=== PATIENT | male | born 1965 | race Hispanic/Latino ===

== ENCOUNTER 2017-07-18 21:06 | Emergency (ER) | payer SELFPAY ==
[2017-07-18 21:16] VITALS: BP 141/79; PULSE 82; RESP 17; TEMP 98.8; O2SAT 99
[2017-07-18] MEDS ORDERED: Lidocaine 1% Inj (20ml) ONE (21:18)
[2017-07-18] MEDS ORDERED: Lidocaine 1% Inj (20ml) IJ ONE (21:21)
--- NOTE | 2017-07-18 21:32 | ED PDOC ---
Upper Extremity Pain/Injury Time Seen by Provider: 07/18/17 21:14 Chief Complaint (Nursing): Upper Extremity Problem/Injury Chief Complaint (Provider): left thumb injury History Per: Patient History/Exam Limitations: no limitations Onset/Duration Of Symptoms: Mins Current Symptoms Are (Timing): Still Present Quality: "Pain" Additional History Per: Patient Additional Complaint(s): The patient is a52yo male, presents to the ED for evaluation s/p sustaining a laceration on his left thumb. Patient reports he accidentally cut himself on a knife at work. He denies any numbness, tingling or weakness. Patient offers no additional medical complaints. Past Medical History Reviewed: Historical Data, Nursing Documentation, Vital Signs Vital Signs: Last Vital Signs Temp 98.8 F 07/18/17 21:11 Pulse 82 07/18/17 21:11 Resp 17 07/18/17 21:11 BP 141/79 07/18/17 21:11 Pulse Ox 99 07/18/17 21:11 - Medical History PMH: No Chronic Diseases - Surgical History Surgical History: No Surg Hx - Family History Family History: States: No Known Family Hx - Social History Current smoker - smoking cessation education provided: No Alcohol: None Drugs: Denies - Home Medications Home Medications: Ambulatory Orders Medication Instructions Recorded Cephalexin [cephalexin] 500 mg PO Q6 #28 cap 07/18/17 - Allergies Allergies/Adverse Reactions: Allergies Allergy/AdvReac Type Severity Reaction Status Date / Time No Known Allergies Allergy Verified 07/18/17 21:16 Review of Systems Musculoskeletal: Positive for: Hand Pain (left thumb laceration) Neurological: Negative for: Weakness, Numbness Physical Exam - Reviewed Nursing Documentation Reviewed: Yes Vital Signs Reviewed: Yes - Physical Exam Appears: Positive for: Well, Non-toxic, No Acute Distress Skin: Positive for: Normal Color, Warm. Negative for: Pallor, Rash Respiratory: Negative for: Accessory Muscle Use, Respiratory Distress Pulses-Radial (L): 2+ Pulses-Radial (R): 2+ Extremity: Positive for: Normal ROM, Capillary Refill (< 2 seconds of L thumb), Other (2 cm v shaped laceration to lateral aspect of left thumb with some partial nail involvement. non-pulsatile bleeding noted.). Negative for: Deformity, Swelling Neurologic/Psych: Positive for: Alert, Oriented. Negative for: Motor/Sensory Deficits - ECG O2 Sat by Pulse Oximetry: 99 (RA) Pulse Ox Interpretation: Normal Medical Decision Making Medical Decision Making: Time: 2119 Impression: 2cm laceration to lt thumb Plan: -- TDAP Booster -- Lidocaine 1% 3ML -- See procedure note for laceration repair Reassess Scribe Attestation: Documented by Heather Hough acting as a scribe for CHRISTIAN Reid Provider Attestation: All medical record entries made by the Scribe were at my direction and personally dictated by me. I have reviewed the chart and agree that the record accurately reflects my personal performance of the history, physical exam, medical decision making, and the department course for this patient. I have also personally directed, reviewed, and agree with the discharge instructions and disposition. Procedures - Time-Out Type of Procedure: Thumb laceration Site of Procedure: L thumb Correct Patient: Yes Correct Procedure: Yes Correct Site Marked: Yes PA/Tech: Aleah - Laceration/Wound Repair Laceration repair Wound Length (cm): 3 Wound's Depth, Shape: superficial Wound Explored: clean Irrigated w/ Saline (ccs): 1,000 Betadine Prep?: Yes Anesthesia: 1% Lidocaine Volume Anesthetic (ccs): 3 Wound Repaired With: Sutures Suture Size/Type: 5:0, proline (10), nylon (2) Number of Sutures: 10 Layer Closure?: No Wound Complexity: Intermediate Sterile Dressing Applied?: Yes Disposition - Clinical Impression Clinical Impression: Thumb laceration - Patient ED Disposition Is Patient to be Admitted: No - Disposition Referrals: [facility] [Outside] Disposition: Routine/Home Disposition Time: 22:25 Condition: STABLE Additional Instructions: SUTURE REMOVAL IN 7-10 DAYS WOUND CHECK IN 2 DAYS Prescriptions: Cephalexin [cephalexin] 500 mg PO Q6 #28 cap Instructions: Care For Your Stitches (ED) Forms: naaya (Luxembour[employer]) Print Language: SAO TOMEAN
== END 2017-07-18 22:24 | disposition home or self-care (01) ==
LOC: H.ER 21:06
DX: S61.012A Laceration without foreign body of left thumb without damage to nail, initial encounter (principal); W26.0XXA Contact with knife, initial encounter; Y92.89 Other specified places as the place of occurrence of the external cause